=== PATIENT | female | born 1940 | race Caucasian/White ===

== ENCOUNTER 2024-08-16 13:26 | Emergency (ER) | payer MEDICARE, BC ==
[~2024-08-16] VITALS: Ht 157.5 cm; Wt 53.0 kg
[2024-08-16] MEDS ORDERED: Ondansetron 4 MG/2 ML VIAL IV ONE (13:45)
[2024-08-16] MEDS ORDERED: NS 1,000 ML IV SCH (13:45)
[2024-08-16 13:53] LABS: HEMATOCRIT 33.1 % (37.0-47.0); HEMOGLOBIN 10.7 g/dL (12.5-16.0); MEAN CELL VOLUME 100 fl (78-100); MEAN CORPUSCULAR HEMOGLOBIN 32 pg (27-31); MEAN CORPUSCULAR HGB CONC 32 g/dL (33-37); MEAN PLATELET VOLUME 9.8 fl (7.4-10.4); PLATELET COUNT 149 K/mm3 (130-400); RED BLOOD COUNT 3.31 M/mm3 (4.10-5.30); RED CELL DISTRIBUTION WIDTH 12.2 % (11.5-14.5); WHITE BLOOD COUNT 3.9 K/mm3 (4.8-10.8)
[2024-08-16 14:00] LABS: ALBUMIN 3.5 g/dL (3.4-4.8)
[2024-08-16 14:02] LABS: CALCIUM 8.6 mg/dL (8.3-10.5)
[2024-08-16 14:03] LABS: TOTAL PROTEIN 6.3 g/dL (6.2-8.1)
[2024-08-16 14:05] LABS: TOTAL BILIRUBIN 0.3 mg/dL (0.2-1.2)
[2024-08-16] MEDS ORDERED: BISOPROLOL FUMARATE (14:45)
[2024-08-16] MEDS ORDERED: HYDROCHLOROTHIA1 T15 PO (14:45)
[2024-08-16] MEDS ORDERED: AMIODARONE200 MG PO (14:46)
[2024-08-16 14:50] LABS: LYMPHOCYTE 6 % (20-51); MONOCYTE 14 % (3-10); NEUTROPHILS 80 % (42-75)
[2024-08-16 16:08] LABS: URINE APPEARANCE SLIGHTLY CLOUDY (CLEAR); URINE BILIRUBIN NEGATIVE (NEGATIVE); URINE COLOR YELLOW (YELLOW); URINE GLUCOSE NEGATIVE (NEGATIVE); URINE KETONE NEGATIVE (NEGATIVE); URINE PROTEIN(semi-quant) TRACE (NEGATIVE)
[2024-08-16 16:09] LABS: URINE BLOOD TRACE-INTACT (NEGATIVE); URINE LEUKOCYTE ESTERASE TRACE (NEGATIVE); URINE NITRATE POSITIVE (NEGATIVE)
[2024-08-16] MEDS ORDERED: MACROBID 100 M100 MG PO (16:15)
[2024-08-16] MEDS ORDERED: cefTRIAXone 1 G in Water For Injection,Sterile 10 ML IV ONE (16:15)
[2024-08-16 16:40] VITALS: BP 138/73
== END 2024-08-16 16:40 | disposition home or self-care (01) ==
LOC: ED 13:26
PROVIDERS: Nurse Practitioner
DX: J10.1 Influenza due to other identified influenza virus with other respiratory manifestations (principal); N39.0 Urinary tract infection, site not specified; R74.01 Elevation of levels of liver transaminase levels
CPT/HCPCS: J0696; J7030